=== PATIENT | female | born 1965 | race Caucasian/White ===

== ENCOUNTER → 2018-04-08 17:12 | Outpatient (CLI) | payer OTHER, SELFPAY ==
[2018-04-08 17:59] LABS: Add Manual Diff / Slide Review NO; Basophils Percent Auto 0.7 % (0-2); Eosinophils Percent Auto 3.9 % (2-4); Hematocrit 40.8 % (36-46); Hemoglobin 13.9 g/dL (12.0-16.0); Mean Corpuscular HGB Conc 34.1 % (30-36); Mean Corpuscular Hemoglobin 29.7 PG (26-34); Mean Corpuscular Volume 87.2 fL (80-100); Monocytes Percent Auto 7.6 % (3-14); Neutrophils Absolute Auto 3400 /uL (3000-5900); Neutrophils Percent Auto 45.8 % (50-75); Platelet Count 337 X10^3/uL (150-400); Red Blood Cell Count 4.68 X10^6/uL (4.0-5.2); Red Cell Distribution Width 12.8 % (11.6-14.8); White Blood Cell Count 7.3 X10^3/uL (4.5-11.0)
[2018-04-08 18:03] LABS: BUN Creatinine Ratio 13.3 (6-22); Blood Urea Nitrogen 12 mg/dL (7-17); Calcium 9.9 mg/dL (8.4-10.2); Carbon Dioxide 31 mmol/L (22-32); Chloride 102 mmol/L (98-107); Estimated Glomerular Filt Rate > 60.0 mL/min (>60); Glucose 110 mg/dL (70-100); HEMOLYSIS < 15 (0-50); Potassium 4.4 mmol/L (3.4-5.1); Sodium 143 mmol/L (137-145)
== END ==
PROVIDERS: PCP Family Medicine; Visit Provider Family Medicine
DX: I10 Essential (primary) hypertension (principal); Z01.818 Encounter for other preprocedural examination
CPT/HCPCS: 36415; 80048; 85025

== ENCOUNTER → 2018-04-20 09:04 | Outpatient (CLI) | payer OTHER, SELFPAY ==
[2018-04-20 10:18] LABS: Hemoglobin A1C% w Est Avg Glu 5.7 % (4.0-6.0)
== END ==
PROVIDERS: PCP Family Medicine; Visit Provider Family Medicine
DX: R73.9 Hyperglycemia, unspecified (principal)
CPT/HCPCS: 36415; 83036

== ENCOUNTER 2018-05-05 09:45 | Outpatient (RCR) | payer OTHER, SELFPAY ==
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
--- NOTE | 2018-04-15 11:06 | PT.OPPOC ---
Current Diagnoses Cervicalgia (04/15/18) Abnormal posture (04/15/18) Weakness (04/15/18) Provider Visit Care Team Role Provider Type Sally Solano MD Attending Provider Physician Primary Care Provider Specialty: [facility] Address: [address] [place] [address], [facility] Email: [email or web address] Plan Of Care PT-OP-T Assessment and Plan Start: 04/15/18 07:29 Freq: Status: Active Protocol: Document 04/15/18 09:42 [facility] (Rec: 04/15/18 11:05 [facility] [id number]) Physical Therapy Assessment Rehab Potential Rehabilitation Potential Excellent Evaluation Complexity Number of Personal Factors/Comorbidities 3 or More Number of Body Systems Impaired 4 or More Clinical Presentation at Evaluation Evolving Impairments Impairments Activity Tolerance Functional Activities Pain Posture ROM Soft Tissue Mobility Strength Goals Three Impairment strength Short Term Goal (STG) Indep with HEP STG Duration 05/15/18 Jail Goal (LTG) 5/5 EFT & UE strength to allow pt to show improved postural stability LTG Duration 06/15/18 Two Impairment DASH Jail Goal (LTG) to 5 to show improvement in functional mobility LTG Duration 06/15/18 One Impairment pain Short Term Goal (STG) no greater than 5/10 pain daily STG Duration 05/15/18 Shovel Logger Goal (LTG) at most 1/10 with all activity including work LTG Duration 06/15/18 Physical Therapy Plan Frequency and Duration Frequency of Treatment 2x/Week Duration of Treatment 2 months Plan of Care Start Date 04/15/18 Plan of Care End Date 06/15/18 Therapeutic Interventions Therapeutic Interventions Aquatic Therapy Home Exercise Program Joint Mobilizations Manual Therapy Patient/Caregiver Education Soft Tissue Mobilization Taping Therapeutic Activities Therapeutic Exercises Modalities Cold Pack/Ice Massage Electric Stimulation Hot Packs Infrared Therapy Traction- Mechanical Ultrasound Next Visit Focus/Plan Next Note Type Treatment Note Next Visit Plan pec stretch, postural roll up, STM to neck & thoracic, PA thoracic mobs, estim?? (ask about skin CA) Plan of Care Dates Plan of Care Start Date 04/15/18 Plan of Care End Date 06/15/18 Please Sign and Return: I have reviewed this Plan of Care and certify that the skilled therapy services above are required to meet the patient?s needs. Physician Signature Date Printed Name and Credentials Clinical Instructor Signature Printed Name and Credentials
--- NOTE | 2018-04-20 11:32 | PT.OTN ---
Current Diagnoses Cervicalgia (04/20/18) Physical Therapy Treatment Note PT-OP-A Visit Information Start: 04/15/18 07:29 Freq: Status: Active Protocol: Document 04/20/18 08:19 [facility] (Rec: 04/20/18 11:30 [facility] [id number]) Out-Patient Physical Therapy Visit Information Visit Information Visit Type Treatment Note Visit Start Time 08:20 Visit Stop Time 09:15 Total Visit Minutes 55 Visit Number 2 Number of HEALTHCARE INTERPRETER Visits 0 PT-OP-B Current Condition Start: 04/15/18 07:29 Freq: Status: Active Protocol: Document 04/15/18 09:42 [facility] (Rec: 04/15/18 10:38 [facility] [id number]) Current Condition History of Current Condition Onset Date several months- December Current Complaints neck pain & R>L shoulder History of Current Condition Pt reprots neck pain started gradually. Unsure what caused it. Reports she does have breast implants and she is unsure if the weight is pulling or if it has to do with work. 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 Reports R arm was bugging her, but that has gone away and shortly after more pain in neck. Pain was getting worse so started to seak treatment. She has been waking up at night. Pt is getting R foot sx for bunion on May 12. Prior Treatments and Tests 3 massages; chiropractor eval & encouraged massage first; no imaging Treatment Goals Patient/Caregiver Goals dec pain for work PT-OP-C Subjective Start: 04/15/18 07:29 Freq: Status: Active Protocol: Document 04/20/18 08:19 [facility] (Rec: 04/20/18 11:32 [facility] [id number]) OP-PT Subjective Patient Comments Patient Comments Pt reports she was a little sore after eval. Ice felt good . PT-OP-F Manual Assessment Start: 04/15/18 07:29 Freq: Status: Active Protocol: Document 04/15/18 09:42 [facility] (Rec: 04/15/18 10:38 [facility] [id number]) Manual Assessments Soft Tissue Assessment Soft Tissue Mobility Assessment R>L cervical paraspinal, LS, UT, scalenes, pec, parascapular mm tight Joint Mobility Assessment Joint Mobility Assessment Elevated shoulder girdle & 1st rib R PT-OP-J Posture/Palpation/Skin Start: 04/15/18 07:29 Freq: Status: Active Protocol: Document 04/15/18 09:42 [facility] (Rec: 04/15/18 10:38 [facility] [id number]) Posture Evaluation [facility] Postural Classification System [facility] Postural Classifications Anterior/Posterior Elbow Flexion Test 0 PT-OP-K Range of Motion Start: 04/15/18 07:29 Freq: Status: Active Protocol: Document 04/15/18 09:42 [facility] (Rec: 04/15/18 10:38 [facility] [id number]) Cervical Spine Range of Motion Cervical Spine Active Degrees Testing Position Sitting Flexion 68 Extension 34 Rotation Left 52 Rotation Right 35 Lateral Flexion Left 35 Lateral Flexion Right 45 ROM Limitations Soft Tissue Tightness Pain Comments pain with ext & flex if go fast, stiff w/flex; tight with L SB; tight with rot & popped w/R rot PT-OP-L Special Tests Start: 04/15/18 07:29 Freq: Status: Active Protocol: Document 04/15/18 09:42 [facility] (Rec: 04/15/18 10:38 [facility] [id number]) Special Tests Cervical Spine Special Tests Spurling's Test Test Results neg Vertebral Artery Test Results neg Alar Ligament Test Results neg Neural Special Tests- Upper Body Radial Nerve Tension Test Results neg L; R positive Upper Limb Tension Test Test Results R: 80 L: 140 Comments passive abd Median Nerve Tension Test Results positve B (R at side) Ulnar Nerve Tension Test Results neg PT-OP-M Strength Start: 04/15/18 07:29 Freq: Status: Active Protocol: Document 04/15/18 09:42 [facility] (Rec: 04/15/18 10:38 [facility] [id number]) Shoulder Strength Shoulder Manual Muscle Testing Right Flexion 4 Good Extension 4- Good- Abduction (C5) 4 Good External Rotation 4- Good- Internal Rotation 4- Good- Left Flexion 5 Normal Extension 4 Good Abduction (C5) 4+ Good+ External Rotation 4+ Good+ Internal Rotation 5 Normal PT-OP-Q Treatments Start: 04/15/18 07:29 Freq: Status: Active Protocol: Document 04/20/18 08:19 [facility] (Rec: 04/20/18 11:30 [facility] [id number]) Therapeutic Exercises Supine Exercises 1 Supine Exercise Name axial elongation on mat Sidelying Exercises 1 Sidelying Exercise Name thoracic rot Side bilateral Reps/Minutes 8 Sitting Exercises 1 Sitting Exercise Name UT & LS stretch Standing Exercises 2 Standing Exercise Name pec stretch 1 Standing Exercise Name wall roll up 90/90 ER Reps/Minutes 10 Manual Therapy Treatment Soft Tissue Mobilization 1 Body Location UT, LS & scalenes Mobilization Type Rolling Intensity/Depth Moderate Joint Mobilizations 1 Joint T1 & 3 Direction L FM w/cover position PT-OP-R Modalities Start: 04/15/18 07:29 Freq: Status: Active Protocol: Document 04/20/18 08:19 [facility] (Rec: 04/20/18 11:30 [facility] [id number]) Hot Pack/Cold Pack Treatment Cold Pack Location neck & R shoulder Patient Position Hooklying Treatment Duration (minutes) 10 PT-OP-T Assessment and Plan Start: 04/15/18 07:29 Freq: Status: Active Protocol: Document 04/20/18 08:19 [facility] (Rec: 04/20/18 11:30 [facility] [id number]) Physical Therapy Assessment Goals Three Impairment strength Short Term Goal (STG) Indep with HEP STG Duration 05/15/18 Retirement Goal (LTG) 5/5 EFT & UE strength to allow pt to show improved postural stability LTG Duration 06/15/18 Two Impairment DASH Exercise Manager Goal (LTG) to 5 to show improvement in functional mobility LTG Duration 06/15/18 One Impairment pain Short Term Goal (STG) no greater than 5/10 pain daily STG Duration 05/15/18 Exercise Manager Goal (LTG) at most 1/10 with all activity including work LTG Duration 06/15/18 Assessment Summary Assessment Pt required cueing for all exercises for form & duration of holds. Pt has R gliding of upper thoracic most notibly with T3. T1 and T2 improved with mobilizations which improved her ROM into rotation . T3 created pinching sensation when glided. Physical Therapy Plan Frequency and Duration Frequency of Treatment 2x/Week Duration of Treatment 2 months Plan of Care Start Date 04/15/18 Plan of Care End Date 06/15/18 Next Visit Focus/Plan Next Note Type Treatment Note Next Visit Plan desk set up, PA thoracic & possible Estim ( ask about skin CA)
--- NOTE | 2018-04-27 17:44 | PT.OTN ---
Current Diagnoses Cervicalgia (04/27/18) Physical Therapy Treatment Note PT-OP-A Visit Information Start: 04/15/18 07:29 Freq: Status: Active Protocol: Document 04/27/18 15:56 [facility] (Rec: 04/27/18 17:44 [facility] [id number]) Out-Patient Physical Therapy Visit Information Visit Information Visit Type Treatment Note Visit Start Time 16:00 Visit Stop Time 16:55 Total Visit Minutes 55 Visit Number 3 Number of ACCREDITATION MANAGER Visits 0 PT-OP-B Current Condition Start: 04/15/18 07:29 Freq: Status: Active Protocol: Document 04/15/18 09:42 [facility] (Rec: 04/15/18 10:38 [facility] [id number]) Current Condition History of Current Condition Onset Date several months- December Current Complaints neck pain & R>L shoulder History of Current Condition Pt reprots neck pain started gradually. Unsure what caused it. Reports she does have breast implants and she is unsure if the weight is pulling or if it has to do with work. 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 Reports R arm was bugging her, but that has gone away and shortly after more pain in neck. Pain was getting worse so started to seak treatment. She has been waking up at night. Pt is getting R foot sx for bunion on May 12. Prior Treatments and Tests 3 massages; chiropractor eval & encouraged massage first; no imaging Treatment Goals Patient/Caregiver Goals dec pain for work PT-OP-C Subjective Start: 04/15/18 07:29 Freq: Status: Active Protocol: Document 04/27/18 15:56 [facility] (Rec: 04/27/18 17:44 [facility] [id number]) OP-PT Subjective Patient Comments Patient Comments Maybe some improvement but still sore. PT-OP-F Manual Assessment Start: 04/15/18 07:29 Freq: Status: Active Protocol: Document 04/15/18 09:42 [facility] (Rec: 04/15/18 10:38 [facility] [id number]) Manual Assessments Soft Tissue Assessment Soft Tissue Mobility Assessment R>L cervical paraspinal, LS, UT, scalenes, pec, parascapular mm tight Joint Mobility Assessment Joint Mobility Assessment Elevated shoulder girdle & 1st rib R PT-OP-J Posture/Palpation/Skin Start: 04/15/18 07:29 Freq: Status: Active Protocol: Document 04/15/18 09:42 [facility] (Rec: 04/15/18 10:38 [facility] [id number]) Posture Evaluation [facility] Postural Classification System [place] Postural Classifications Anterior/Posterior Elbow Flexion Test 0 PT-OP-K Range of Motion Start: 04/15/18 07:29 Freq: Status: Active Protocol: Document 04/15/18 09:42 [facility] (Rec: 04/15/18 10:38 [facility] [id number]) Cervical Spine Range of Motion Cervical Spine Active Degrees Testing Position Sitting Flexion 68 Extension 34 Rotation Left 52 Rotation Right 35 Lateral Flexion Left 35 Lateral Flexion Right 45 ROM Limitations Soft Tissue Tightness Pain Comments pain with ext & flex if go fast, stiff w/flex; tight with L SB; tight with rot & popped w/R rot PT-OP-L Special Tests Start: 04/15/18 07:29 Freq: Status: Active Protocol: Document 04/15/18 09:42 [facility] (Rec: 04/15/18 10:38 [facility] [id number]) Special Tests Cervical Spine Special Tests Spurling's Test Test Results neg Vertebral Artery Test Results neg Alar Ligament Test Results neg Neural Special Tests- Upper Body Radial Nerve Tension Test Results neg L; R positive Upper Limb Tension Test Test Results R: 80 L: 140 Comments passive abd Median Nerve Tension Test Results positve B (R at side) Ulnar Nerve Tension Test Results neg PT-OP-M Strength Start: 04/15/18 07:29 Freq: Status: Active Protocol: Document 04/15/18 09:42 [facility] (Rec: 04/15/18 10:38 [facility] [id number]) Shoulder Strength Shoulder Manual Muscle Testing Right Flexion 4 Good Extension 4- Good- Abduction (C5) 4 Good External Rotation 4- Good- Internal Rotation 4- Good- Left Flexion 5 Normal Extension 4 Good Abduction (C5) 4+ Good+ External Rotation 4+ Good+ Internal Rotation 5 Normal PT-OP-Q Treatments Start: 04/15/18 07:29 Freq: Status: Active Protocol: Document 04/27/18 15:56 [facility] (Rec: 04/27/18 17:44 [facility] [id number]) Therapeutic Exercises Supine Exercises 1 Supine Exercise Name axial elongation on mat Sidelying Exercises 1 Sidelying Exercise Name thoracic rot Side bilateral Reps/Minutes 5 Sitting Exercises 1 Sitting Exercise Name UT & LS stretch Standing Exercises 2 Standing Exercise Name pec stretch 1 Standing Exercise Name wall roll up 90/90 ER Reps/Minutes 10 Manual Therapy Treatment Soft Tissue Mobilization 3 Body Location cervical parapsinals Mobilization Type Rolling Sustained Pressure Comments FM w/chin tucks 2 Body Location SOR Mobilization Type Sustained Pressure Intensity/Depth Moderate PT-OP-R Modalities Start: 04/15/18 07:29 Freq: Status: Active Protocol: Document 04/27/18 15:56 [facility] (Rec: 04/27/18 17:44 [facility] [id number]) Electric Stimulation Electric Stimulation Interferential Current (IFC) Body Location R cervical/shoulder Duration (Minutes) 10 Combined With Heat/Cold Cold Pack Comments CP R shoulder & cervical PT-OP-T Assessment and Plan Start: 04/15/18 07:29 Freq: Status: Active Protocol: Document 04/27/18 15:56 [facility] (Rec: 04/27/18 17:44 [facility] [id number]) Physical Therapy Assessment Goals Three Impairment strength Short Term Goal (STG) Indep with HEP STG Duration 05/15/18 Subway Train Operator Goal (LTG) 5/5 EFT & UE strength to allow pt to show improved postural stability LTG Duration 06/15/18 Two Impairment DASH Retirement Goal (LTG) to 5 to show improvement in functional mobility LTG Duration 06/15/18 One Impairment pain Short Term Goal (STG) no greater than 5/10 pain daily STG Duration 05/15/18 Subway Train Operator Goal (LTG) at most 1/10 with all activity including work LTG Duration 06/15/18 Assessment Summary Assessment Pt required cueing and new hand out for HEP exercises. She cont to be tight in upper thoracic & had significant cervical paraspinal & suboccipital region. Improved with STM. Physical Therapy Plan Frequency and Duration Frequency of Treatment 2x/Week Duration of Treatment 2 months Plan of Care Start Date 04/15/18 Plan of Care End Date 06/15/18 Next Visit Focus/Plan Next Note Type Treatment Note Next Visit Plan cont to review desk set up info edu & foam roll trial
--- NOTE | 2018-04-29 17:57 | PT.OTN ---
Current Diagnoses Cervicalgia (04/29/18) Physical Therapy Treatment Note PT-OP-A Visit Information Start: 04/15/18 07:29 Freq: Status: Active Protocol: Document 04/29/18 17:44 [facility] (Rec: 04/29/18 17:57 ML [id number]) Out-Patient Physical Therapy Visit Information Visit Information Visit Type Treatment Note Visit Start Time 15:15 Visit Stop Time 16:10 Total Visit Minutes 55 Visit Number 4 Number of COUNTERSINKER BALANCE SCREW HOLE Visits 0 PT-OP-B Current Condition Start: 04/15/18 07:29 Freq: Status: Active Protocol: Document 04/15/18 09:42 [facility] (Rec: 04/15/18 10:38 [facility] [id number]) Current Condition History of Current Condition Onset Date several months- December Current Complaints neck pain & R>L shoulder History of Current Condition Pt reprots neck pain started gradually. Unsure what caused it. Reports she does have breast implants and she is unsure if the weight is pulling or if it has to do with work. 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 Reports R arm was bugging her, but that has gone away and shortly after more pain in neck. Pain was getting worse so started to seak treatment. She has been waking up at night. Pt is getting R foot sx for bunion on May 12. Prior Treatments and Tests 3 massages; chiropractor eval & encouraged massage first; no imaging Treatment Goals Patient/Caregiver Goals dec pain for work PT-OP-C Subjective Start: 04/15/18 07:29 Freq: Status: Active Protocol: Document 04/29/18 17:44 [facility] (Rec: 04/29/18 17:57 ML [id number]) OP-PT Subjective Patient Comments Patient Comments Pt mentioned that she was feeling sore but that what we did last time was felt really good. She stated that she had not hardly been home and had not done her exercises since her visit Friday. PT-OP-F Manual Assessment Start: 04/15/18 07:29 Freq: Status: Active Protocol: Document 04/15/18 09:42 [facility] (Rec: 04/15/18 10:38 [facility] [id number]) Manual Assessments Soft Tissue Assessment Soft Tissue Mobility Assessment R>L cervical paraspinal, LS, UT, scalenes, pec, parascapular mm tight Joint Mobility Assessment Joint Mobility Assessment Elevated shoulder girdle & 1st rib R PT-OP-J Posture/Palpation/Skin Start: 04/15/18 07:29 Freq: Status: Active Protocol: Document 04/15/18 09:42 [facility] (Rec: 04/15/18 10:38 [facility] [id number]) Posture Evaluation [facility] Postural Classification System [facility] Postural Classifications Anterior/Posterior Elbow Flexion Test 0 PT-OP-K Range of Motion Start: 04/15/18 07:29 Freq: Status: Active Protocol: Document 04/15/18 09:42 [facility] (Rec: 04/15/18 10:38 [facility] [id number]) Cervical Spine Range of Motion Cervical Spine Active Degrees Testing Position Sitting Flexion 68 Extension 34 Rotation Left 52 Rotation Right 35 Lateral Flexion Left 35 Lateral Flexion Right 45 ROM Limitations Soft Tissue Tightness Pain Comments pain with ext & flex if go fast, stiff w/flex; tight with L SB; tight with rot & popped w/R rot PT-OP-L Special Tests Start: 04/15/18 07:29 Freq: Status: Active Protocol: Document 04/15/18 09:42 [facility] (Rec: 04/15/18 10:38 [facility] [id number]) Special Tests Cervical Spine Special Tests Spurling's Test Test Results neg Vertebral Artery Test Results neg Alar Ligament Test Results neg Neural Special Tests- Upper Body Radial Nerve Tension Test Results neg L; R positive Upper Limb Tension Test Test Results R: 80 L: 140 Comments passive abd Median Nerve Tension Test Results positve B (R at side) Ulnar Nerve Tension Test Results neg PT-OP-M Strength Start: 04/15/18 07:29 Freq: Status: Active Protocol: Document 04/15/18 09:42 [facility] (Rec: 04/15/18 10:38 [facility] [id number]) Shoulder Strength Shoulder Manual Muscle Testing Right Flexion 4 Good Extension 4- Good- Abduction (C5) 4 Good External Rotation 4- Good- Internal Rotation 4- Good- Left Flexion 5 Normal Extension 4 Good Abduction (C5) 4+ Good+ External Rotation 4+ Good+ Internal Rotation 5 Normal PT-OP-Q Treatments Start: 04/15/18 07:29 Freq: Status: Active Protocol: Document 04/29/18 17:44 ML (Rec: 04/29/18 17:57 ML [id number]) Therapeutic Exercises Supine Exercises 1 Supine Exercise Name axial elongation on mat Comments showed improvement Sidelying Exercises 1 Sidelying Exercise Name thoracic rot Side bilateral Reps/Minutes 10 bilat Comments instructed for head to move with arm as comfortable Sitting Exercises 1 Sitting Exercise Name UT & LS stretch Comments just head tilt, no pull with hand Standing Exercises 2 Standing Exercise Name pec stretch 1 Standing Exercise Name wall roll up 90/90 ER Reps/Minutes 10 Comments required cueing for getting legs away from wall to achieve correct posture Therapeutic Activity Therapeutic Activity 1 Name desk ergonomic positioning Comments reviewed pictures and educated pt about changes to make at desk space Manual Therapy Treatment Soft Tissue Mobilization 1 Body Location UT, LS & scalenes Mobilization Type Rolling Intensity/Depth Moderate Comments w/chin tucks PT-OP-R Modalities Start: 04/15/18 07:29 Freq: Status: Active Protocol: Document 04/29/18 17:44 ML (Rec: 04/29/18 17:57 ML [id number]) Electric Stimulation Electric Stimulation Interferential Current (IFC) Body Location R cervical/shoulder Duration (Minutes) 10 Combined With Heat/Cold Cold Pack Comments CP R shoulder & cervical PT-OP-T Assessment and Plan Start: 04/15/18 07:29 Freq: Status: Active Protocol: Document 04/29/18 17:44 ML (Rec: 04/29/18 17:57 ML [id number]) Physical Therapy Assessment Goals Three Impairment strength Short Term Goal (STG) Indep with HEP STG Duration 05/15/18 Manager Maritime Goal (LTG) 5/5 EFT & UE strength to allow pt to show improved postural stability LTG Duration 06/15/18 Two Impairment DASH Mcc Goal (LTG) to 5 to show improvement in functional mobility LTG Duration 06/15/18 One Impairment pain Short Term Goal (STG) no greater than 5/10 pain daily STG Duration 05/15/18 Manager Maritime Goal (LTG) at most 1/10 with all activity including work LTG Duration 06/15/18 Assessment Summary Assessment Spent time reviewing HEP and pictures of her at her work desk education on modifications to exercises and work space. Pt showed significant improvement on postural control of her head since last visit. Pt still presenting with significant muscular tightness and feeling very sore. Physical Therapy Plan Frequency and Duration Frequency of Treatment 2x/Week Duration of Treatment 2 months Plan of Care Start Date 04/15/18 Plan of Care End Date 06/15/18 Next Visit Focus/Plan Next Note Type Treatment Note Next Visit Plan check pictures of desk modifications, check if done HEP, foam roll trial, manual mobilization prn
--- NOTE | 2018-05-05 11:46 | PT.OTN ---
Current Diagnoses Cervicalgia (05/05/18) Physical Therapy Treatment Note PT-OP-A Visit Information Start: 04/15/18 07:29 Freq: Status: Active Protocol: Document 05/05/18 11:28 ML (Rec: 05/05/18 11:46 ML [id number]) Out-Patient Physical Therapy Visit Information Visit Information Visit Type Treatment Note Visit Start Time 09:45 Visit Stop Time 10:40 Total Visit Minutes 55 Visit Number 5 Number of CONTROL ROOM OPERATOR Visits 0 PT-OP-B Current Condition Start: 04/15/18 07:29 Freq: Status: Active Protocol: Document 04/15/18 09:42 [facility] (Rec: 04/15/18 10:38 [facility] [id number]) Current Condition History of Current Condition Onset Date several months- December Current Complaints neck pain & R>L shoulder History of Current Condition Pt reprots neck pain started gradually. Unsure what caused it. Reports she does have breast implants and she is unsure if the weight is pulling or if it has to do with work. 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 Reports R arm was bugging her, but that has gone away and shortly after more pain in neck. Pain was getting worse so started to seak treatment. She has been waking up at night. Pt is getting R foot sx for bunion on May 12. Prior Treatments and Tests 3 massages; chiropractor eval & encouraged massage first; no imaging Treatment Goals Patient/Caregiver Goals dec pain for work PT-OP-C Subjective Start: 04/15/18 07:29 Freq: Status: Active Protocol: Document 05/05/18 11:28 ML (Rec: 05/05/18 11:46 ML [id number]) OP-PT Subjective Patient Comments Patient Comments Pt mentioned that she feels the same but that she always leaves here feeling really good. She stated that she just made adjustments to her desk space this morning and that she was able to do her exercises at home this weekend . PT-OP-F Manual Assessment Start: 04/15/18 07:29 Freq: Status: Active Protocol: Document 04/15/18 09:42 [facility] (Rec: 04/15/18 10:38 [facility] [id number]) Manual Assessments Soft Tissue Assessment Soft Tissue Mobility Assessment R>L cervical paraspinal, LS, UT, scalenes, pec, parascapular mm tight Joint Mobility Assessment Joint Mobility Assessment Elevated shoulder girdle & 1st rib R PT-OP-J Posture/Palpation/Skin Start: 04/15/18 07:29 Freq: Status: Active Protocol: Document 04/15/18 09:42 [facility] (Rec: 04/15/18 10:38 [facility] [id number]) Posture Evaluation [facility] Postural Classification System [facility] Postural Classifications Anterior/Posterior Elbow Flexion Test 0 PT-OP-K Range of Motion Start: 04/15/18 07:29 Freq: Status: Active Protocol: Document 04/15/18 09:42 [facility] (Rec: 04/15/18 10:38 [facility] [id number]) Cervical Spine Range of Motion Cervical Spine Active Degrees Testing Position Sitting Flexion 68 Extension 34 Rotation Left 52 Rotation Right 35 Lateral Flexion Left 35 Lateral Flexion Right 45 ROM Limitations Soft Tissue Tightness Pain Comments pain with ext & flex if go fast, stiff w/flex; tight with L SB; tight with rot & popped w/R rot PT-OP-L Special Tests Start: 04/15/18 07:29 Freq: Status: Active Protocol: Document 04/15/18 09:42 [facility] (Rec: 04/15/18 10:38 [facility] [id number]) Special Tests Cervical Spine Special Tests Spurling's Test Test Results neg Vertebral Artery Test Results neg Alar Ligament Test Results neg Neural Special Tests- Upper Body Radial Nerve Tension Test Results neg L; R positive Upper Limb Tension Test Test Results R: 80 L: 140 Comments passive abd Median Nerve Tension Test Results positve B (R at side) Ulnar Nerve Tension Test Results neg PT-OP-M Strength Start: 04/15/18 07:29 Freq: Status: Active Protocol: Document 04/15/18 09:42 [facility] (Rec: 04/15/18 10:38 [facility] [id number]) Shoulder Strength Shoulder Manual Muscle Testing Right Flexion 4 Good Extension 4- Good- Abduction (C5) 4 Good External Rotation 4- Good- Internal Rotation 4- Good- Left Flexion 5 Normal Extension 4 Good Abduction (C5) 4+ Good+ External Rotation 4+ Good+ Internal Rotation 5 Normal PT-OP-Q Treatments Start: 04/15/18 07:29 Freq: Status: Active Protocol: Document 05/05/18 11:28 ML (Rec: 05/05/18 11:46 ML [email or web address]) Therapeutic Exercises Supine Exercises 2 Supine Exercise Name foam roller w/arm movements Comments horiz abd, flex and abd limited by R shoulder pain 1 Supine Exercise Name axial elongation on mat Comments showed independence with this exercise Sidelying Exercises 1 Sidelying Exercise Name thoracic rot Side bilateral Reps/Minutes 10 bilat Comments showed to be independent Sitting Exercises 1 Sitting Exercise Name UT & LS stretch Comments just head tilt, required instruction for posture, hold time, & set up Standing Exercises 2 Standing Exercise Name pec stretch Comments required instruction for hold time and positioning 1 Standing Exercise Name wall roll up 90/90 ER Reps/Minutes 8 Comments required cueing for getting legs away from wall to achieve correct posture Manual Therapy Treatment Soft Tissue Mobilization 3 Body Location cervical paraspinals Mobilization Type Rolling Sustained Pressure Comments FM w/chin tucks 1 Body Location UT & LS Mobilization Type Rolling Intensity/Depth Moderate Comments w/chin tucks and shoulder elevation/depression Joint Mobilizations 1 Joint T2 & 3 Direction L FM w/cover position PT-OP-R Modalities Start: 04/15/18 07:29 Freq: Status: Active Protocol: Document 05/05/18 11:28 ML (Rec: 05/05/18 11:46 ML [id number]) Electric Stimulation Electric Stimulation Interferential Current (IFC) Body Location R cervical/shoulder Duration (Minutes) 10 Combined With Heat/Cold Cold Pack Comments CP R shoulder & cervical PT-OP-T Assessment and Plan Start: 04/15/18 07:29 Freq: Status: Active Protocol: Document 05/05/18 11:28 ML (Rec: 05/05/18 11:46 ML [id number]) Physical Therapy Assessment Goals Three Impairment strength Short Term Goal (STG) Indep with HEP STG Duration 05/15/18 Long-Term Goal (LTG) 5/5 EFT & UE strength to allow pt to show improved postural stability LTG Duration 06/15/18 Two Impairment DASH Long-Term Goal (LTG) to 5 to show improvement in functional mobility LTG Duration 06/15/18 One Impairment pain Short Term Goal (STG) no greater than 5/10 pain daily STG Duration 05/15/18 Clinical Information Systems Director Goal (LTG) at most 1/10 with all activity including work LTG Duration 06/15/18 Assessment Summary Assessment Pt demonstrated HEP correctly with additional cueing. Pt also improved rotation with soft tissue mobilization and T2-T3 mobilization. Pt demonstrated a good stretch during the foam exercises and showed interest in getting one to use at home. Physical Therapy Plan Frequency and Duration Frequency of Treatment 2x/Week Duration of Treatment 2 months Plan of Care Start Date 04/15/18 Plan of Care End Date 06/15/18 Next Visit Focus/Plan Next Note Type Treatment Note Next Visit Plan check desk pictures, continue to work on T spine mobility, review foam and ask about info , check the few exercises that needed cueing for HEP, work manually more anterior and into chest
--- NOTE | 2018-06-03 09:10 | PT.OPDS ---
Current Diagnoses Cervicalgia (05/05/18) Provider Visit Care Team Role Provider Type Sally Solano MD Attending Provider Physician Primary Care Provider Specialty: [facility] Address: [address] [place] [address], [facility] Email: [email or web address] Visit Number Visit Number 5 Discharge Summary PT-OP-B Current Condition Start: 04/15/18 07:29 Freq: Status: Active Protocol: Document 04/15/18 09:42 [facility] (Rec: 04/15/18 10:38 [facility] [id number]) Current Condition History of Current Condition Onset Date several months- December Current Complaints neck pain & R>L shoulder History of Current Condition Pt reprots neck pain started gradually. Unsure what caused it. Reports she does have breast implants and she is unsure if the weight is pulling or if it has to do with work. 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 Reports R arm was bugging her, but that has gone away and shortly after more pain in neck. Pain was getting worse so started to seak treatment. She has been waking up at night. Pt is getting R foot sx for bunion on May 12. Prior Treatments and Tests 3 massages; chiropractor eval & encouraged massage first; no imaging Treatment Goals Patient/Caregiver Goals dec pain for work PT-OP-C Subjective Start: 04/15/18 07:29 Freq: Status: Active Protocol: Document 05/05/18 11:28 [facility] (Rec: 05/05/18 11:46 ML [id number]) OP-PT Subjective Patient Comments Patient Comments Pt mentioned that she feels the same but that she always leaves here feeling really good. She stated that she just made adjustments to her desk space this morning and that she was able to do her exercises at home this weekend . PT-OP-F Manual Assessment Start: 04/15/18 07:29 Freq: Status: Active Protocol: Document 04/15/18 09:42 [facility] (Rec: 04/15/18 10:38 [facility] [id number]) Manual Assessments Soft Tissue Assessment Soft Tissue Mobility Assessment R>L cervical paraspinal, LS, UT, scalenes, pec, parascapular mm tight Joint Mobility Assessment Joint Mobility Assessment Elevated shoulder girdle & 1st rib R PT-OP-J Posture/Palpation/Skin Start: 04/15/18 07:29 Freq: Status: Active Protocol: Document 04/15/18 09:42 [facility] (Rec: 04/15/18 10:38 [facility] [id number]) Posture Evaluation [facility] Postural Classification System Alin Postural Classifications Anterior/Posterior Elbow Flexion Test 0 PT-OP-K Range of Motion Start: 04/15/18 07:29 Freq: Status: Active Protocol: Document 04/15/18 09:42 [facility] (Rec: 04/15/18 10:38 [facility] [id number]) Cervical Spine Range of Motion Cervical Spine Active Degrees Testing Position Sitting Flexion 68 Extension 34 Rotation Left 52 Rotation Right 35 Lateral Flexion Left 35 Lateral Flexion Right 45 ROM Limitations Soft Tissue Tightness Pain Comments pain with ext & flex if go fast, stiff w/flex; tight with L SB; tight with rot & popped w/R rot PT-OP-L Special Tests Start: 04/15/18 07:29 Freq: Status: Active Protocol: Document 04/15/18 09:42 [facility] (Rec: 04/15/18 10:38 [facility] [id number]) Special Tests Cervical Spine Special Tests Spurling's Test Test Results neg Vertebral Artery Test Results neg Alar Ligament Test Results neg Neural Special Tests- Upper Body Radial Nerve Tension Test Results neg L; R positive Upper Limb Tension Test Test Results R: 80 L: 140 Comments passive abd Median Nerve Tension Test Results positve B (R at side) Ulnar Nerve Tension Test Results neg PT-OP-M Strength Start: 04/15/18 07:29 Freq: Status: Active Protocol: Document 04/15/18 09:42 [facility] (Rec: 04/15/18 10:38 [facility] [id number]) Shoulder Strength Shoulder Manual Muscle Testing Right Flexion 4 Good Extension 4- Good- Abduction (C5) 4 Good External Rotation 4- Good- Internal Rotation 4- Good- Left Flexion 5 Normal Extension 4 Good Abduction (C5) 4+ Good+ External Rotation 4+ Good+ Internal Rotation 5 Normal PT-OP-T Assessment and Plan Start: 04/15/18 07:29 Freq: Status: Active Protocol: Document 06/03/18 09:10 [facility] (Rec: 06/03/18 09:10 [facility] [id number]) Physical Therapy Plan Discharge Physical Therapy Discharge Reasons Patient Request Discharge Comments Pt cancelled all appointments and asked for d/c. Pt attended eval and 4 treatment session with focus on training in HEP and compliance with HEP & desk posture. Pt is d/c from PT at this time.
== END 2018-07-22 10:16 ==
LOC: PHYS 09:45
PROVIDERS: PCP Family Medicine; Visit Provider Family Medicine
DX: M54.2 Cervicalgia (principal)
CPT/HCPCS: 97010; 97014; 97110; 97140; 97162; 97530; G0283

== ENCOUNTER → 2018-05-06 17:11 | Outpatient (CLI) | payer OTHER, SELFPAY ==
--- NOTE | 2018-05-06 17:14 | DI.RAD.S_ITS ---
PROCEDURE: XR SHOULDER RT MIN 2V INDICATIONS: neck and right shoulder pain TECHNIQUE: 3 views of the shoulder were acquired. COMPARISON: None. FINDINGS: Bones: No fractures or dislocations. No suspicious bony lesions. Visualized ribs appear intact. Moderate acromioclavicular degenerative narrowing. Soft tissues: No suspicious soft tissue calcifications. IMPRESSION: Moderate acromioclavicular degenerative narrowing. Dictated by: Concepcion Castro M.D. on 05/07/2018 at 9:52 Approved by: Concepcion Castro M.D. on 05/07/2018 at 10:01
--- NOTE | 2018-05-06 17:14 | DI.RAD.S_ITS ---
PROCEDURE: XR CERVICAL SPINE 2V OR 3V INDICATIONS: neck and right shoulder pain TECHNIQUE: 3 view(s) of the cervical spine were acquired. COMPARISON: None. FINDINGS: Bones: No fractures or dislocations to the C7-T1 level. The lateral masses of C1 appear intact on the odontoid view. No suspicious bony lesions. There is trace anterolisthesis of C3 on C4. Mild to space narrowing is present at C3-4, C4-5 and C5-6. There is appearance of overall straightening and minimal reversal cervical curvature. Soft tissues: No prevertebral soft tissue swelling. IMPRESSION: Degenerative changes as above. Dictated by: Concepcion Castro M.D. on 05/07/2018 at 10:02 Approved by: Concepcion Castro M.D. on 05/07/2018 at 10:03
== END ==
PROVIDERS: PCP Family Medicine; Visit Provider Family Medicine
DX: M54.2 Cervicalgia (principal); M48.02 Spinal stenosis, cervical region; M25.511 Pain in right shoulder; M19.011 Primary osteoarthritis, right shoulder
CPT/HCPCS: 72040; 73030

== ENCOUNTER → 2018-06-08 14:23 | Outpatient (CLI) | payer OTHER, SELFPAY ==
--- NOTE | 2018-06-08 14:24 | DI.MG.S_ITS ---
BILATERAL DIGITAL SCREENING MAMMOGRAM 3D/2D WITH CAD WITH AUGMENTATION: 06/08/2018 CLINICAL: Patient presents for routine screening. S/P bilateral augmentation. Family history of breast cancer. Comparison is made to exams dated: 06/09/2014 mammogram - [facility] and 08/20/2007 mammogram - [facility]. The tissue of both breasts is heterogeneously dense. This may lower the sensitivity of mammography. Current study was also evaluated with a Computer Aided Detection (CAD) system. Bilateral breast implants are stable. There are benign calcifications in both breasts. No significant masses, calcifications, or other findings are seen in either breast. There has been no significant interval change. IMPRESSION: There is no mammographic evidence of malignancy. A 1 year screening mammogram is recommended. This exam was interpreted at Station ID: [id number]. NOTE: For mammograms, a report in lay terms will be sent to the patient. Approximately 15% of breast malignancies will not be visualized mammographically. In the management of a palpable breast mass, a negative mammogram must not discourage biopsy of a clinically suspicious lesion. Electronically Signed By: Jim maurer/marky:06/08/2018 17:29:51 letter sent: Normal Exam ACR BI-RADS Category 2: Benign Finding(s) 3342F
== END ==
PROVIDERS: PCP Family Medicine; Visit Provider Family Medicine
DX: Z12.31 Encounter for screening mammogram for malignant neoplasm of breast (principal); Z80.3 Family history of malignant neoplasm of breast; Z98.82 Breast implant status
CPT/HCPCS: 77063; 77067

== ENCOUNTER → 2019-06-07 07:17 | Outpatient (CLI) | payer OTHER, SELFPAY ==
[2019-06-07 08:27] LABS: Alanine Aminotransferase 25 IU/L (<35); Albumin 4.5 g/dL (3.5-5.0); Albumin Globulin Ratio 1.3 (1.0-2.8); Alkaline Phosphatase 55 U/L (38-126); Aspartate Aminotransferase 32 IU/L (14-36); Bilirubin Total 0.5 mg/dL (0.2-1.3); Blood Urea Nitrogen 11 mg/dL (7-17); Calcium 9.7 mg/dL (8.4-10.2); Carbon Dioxide 28 mmol/L (22-32); Chloride 105 mmol/L (98-107); Cholesterol 232 mg/dL (140-199); Estimated Glomerular Filt Rate 51.8 mL/min (>60); Globulin 3.4 g/dL (1.7-4.1); Glucose 106 mg/dL (70-100); HDL Cholesterol 57 mg/dL (40-60); HEMOLYSIS < 15 (0-50); LDL Cholesterol Calculated 153 mg/dL (<100); Potassium 4.2 mmol/L (3.4-5.1); Sodium 140 mmol/L (137-145); Total Protein 7.9 g/dL (6.3-8.2); Triglycerides 111 mg/dL (35-150)
[2019-06-07 08:55] LABS: Thyroid Stimulating Hormone 1.83 uIU/mL (0.47-4.68)
[2019-06-07 10:40] LABS: Hemoglobin A1C% w Est Avg Glu 5.6 % (4.0-6.0)
== END ==
PROVIDERS: PCP Family Medicine; Visit Provider Family Medicine
DX: I10 Essential (primary) hypertension (principal); R73.9 Hyperglycemia, unspecified; E03.9 Hypothyroidism, unspecified
CPT/HCPCS: 36415; 80053; 80061; 83036; 84443

== ENCOUNTER → 2019-07-07 12:08 | Outpatient (CLI) | payer OTHER, SELFPAY ==
[2019-07-07 13:08] LABS: Alanine Aminotransferase 19 IU/L (<35); Albumin 4.3 g/dL (3.5-5.0); Albumin Globulin Ratio 1.5 (1.0-2.8); Alkaline Phosphatase 61 U/L (38-126); Aspartate Aminotransferase 27 IU/L (14-36); Bilirubin Total 0.5 mg/dL (0.2-1.3); Blood Urea Nitrogen 15 mg/dL (7-17); Calcium 9.9 mg/dL (8.4-10.2); Carbon Dioxide 25 mmol/L (22-32); Chloride 104 mmol/L (98-107); Estimated Glomerular Filt Rate 57.8 mL/min (>60); Globulin 2.8 g/dL (1.7-4.1); Glucose 92 mg/dL (70-100); HEMOLYSIS < 15 (0-50); Potassium 4.3 mmol/L (3.4-5.1); Sodium 139 mmol/L (137-145); Total Protein 7.1 g/dL (6.3-8.2)
== END ==
PROVIDERS: PCP Family Medicine; Visit Provider Family Medicine
DX: R89.9 Unspecified abnormal finding in specimens from other organs, systems and tissues (principal)
CPT/HCPCS: 36415; 80053

== ENCOUNTER → 2020-07-31 16:53 | Outpatient (CLI) | payer OTHER, SELFPAY ==
--- NOTE | 2020-07-31 17:00 | DI.RAD.S_ITS ---
PROCEDURE: XR HUMERUS RT 2V INDICATIONS: pain in rt humerus TECHNIQUE: 2 views of the humerus were acquired. COMPARISON: [facility], CR, XR SHOULDER RT MIN 2V, 05/06/2018, 16:51. [facility], CR, XR SCAPULA RT, 07/31/2020, 17:03. [facility], CR, XR CLAVICLE RT, 07/31/2020, 17:03. FINDINGS: Bones: No fractures or dislocations. No suspicious bony lesions. Soft tissues: No suspicious soft tissue calcifications. IMPRESSION: Right humerus plain films within normal limits. Dictated by: Ruslan Masters M.D. on 07/31/2020 at 16:18 Approved by: Ruslan Masters M.D. on 07/31/2020 at 16:19
--- NOTE | 2020-07-31 17:00 | DI.RAD.S_ITS ---
PROCEDURE: XR SCAPULA RT INDICATIONS: pain in rt scapula TECHNIQUE: 2 views of the scapula were acquired. COMPARISON: [facility], CR, XR SHOULDER RT MIN 2V, 05/06/2018, 16:51. [facility], CR, XR CLAVICLE RT, 07/31/2020, 17:03. [facility], CR, XR HUMERUS RT 2V, 07/31/2020, 17:03. FINDINGS: Bones: No fractures or dislocations. No suspicious bony lesions. Visualized ribs appear intact. Soft tissues: Overlying soft tissues appear normal. The visualized lung demonstrates an unremarkable appearance. IMPRESSION: Unremarkable plain films of the scapula. Dictated by: Ruslan Masters M.D. on 07/31/2020 at 16:19 Approved by: Ruslan Masters M.D. on 07/31/2020 at 16:19
--- NOTE | 2020-07-31 17:00 | DI.RAD.S_ITS ---
PROCEDURE: XR CLAVICLE RT INDICATIONS: pain in rt clavicle TECHNIQUE: 2 views of the clavicle were acquired. COMPARISON: [facility], CR, XR SCAPULA RT, 07/31/2020, 17:03. [facility], CR, XR SHOULDER RT MIN 2V, 05/06/2018, 16:51. FINDINGS: Bones: No fractures or dislocations. No suspicious bony lesions. Soft tissues: No suspicious soft tissue calcifications. The visualized lung demonstrates an unremarkable appearance. IMPRESSION: Normal clavicle plain films. Dictated by: Ruslan Masters M.D. on 07/31/2020 at 16:18 Approved by: Ruslan Masters M.D. on 07/31/2020 at 16:18
== END ==
PROVIDERS: PCP Family Medicine; Referring Provider Physician Assistant; Visit Provider Physician Assistant
DX: M89.8X2 Other specified disorders of bone, upper arm (principal); M89.8X1 Other specified disorders of bone, shoulder
CPT/HCPCS: 73000; 73010; 73060

== ENCOUNTER → 2020-08-04 07:04 | Outpatient (CLI) | payer OTHER, SELFPAY ==
[2020-08-04 08:18] LABS: Alanine Aminotransferase 34 IU/L (<35); Albumin 4.2 g/dL (3.5-5.0); Albumin Globulin Ratio 1.4 (1.0-2.8); Alkaline Phosphatase 55 U/L (38-126); Aspartate Aminotransferase 35 IU/L (14-36); BUN Creatinine Ratio 22.6 (6-22); Bilirubin Total 0.3 mg/dL (0.2-1.3); Blood Urea Nitrogen 21 mg/dL (7-17); Calcium 9.3 mg/dL (8.4-10.2); Carbon Dioxide 29 mmol/L (22-32); Chloride 106 mmol/L (98-107); Cholesterol 189 mg/dL (140-199); Estimated Glomerular Filt Rate > 60.0 mL/min (>60); Globulin 3.1 g/dL (1.7-4.1); Glucose 105 mg/dL (70-100); HDL Cholesterol 53 mg/dL (40-60); HEMOLYSIS < 15 (0-50); LDL Cholesterol Calculated 122 mg/dL (<100); Potassium 4.8 mmol/L (3.4-5.1); Sodium 139 mmol/L (137-145); Total Protein 7.3 g/dL (6.3-8.2); Triglycerides 71 mg/dL (35-150)
[2020-08-04 08:27] LABS: Creatinine Urine Random 207.7 mg/dL
[2020-08-04 08:32] LABS: Microalbumi Creatinin Ratio Ur 69.3 ug/mg CR (<30); Microalbumin Urine Random 14.4 mg/dL (0-1.6)
[2020-08-04 09:52] LABS: Thyroid Stimulating Hormone 2.03 uIU/mL (0.47-4.68)
== END ==
PROVIDERS: PCP Family Medicine; Referring Provider Family Medicine; Visit Provider Family Medicine
DX: I10 Essential (primary) hypertension (principal)
CPT/HCPCS: 36415; 80053; 80061; 82043; 82570; 84443

== ENCOUNTER → 2020-09-14 08:05 | Outpatient (CLI) | payer OTHER, SELFPAY ==
--- NOTE | 2020-09-14 | DI.MG.S_ITS ---
BILATERAL DIGITAL SCREENING MAMMOGRAM 3D/2D WITH CAD: 09/14/2020 CLINICAL: Routine screening. Family history of breast cancer. Comparison is made to exams dated: 06/08/2018 mammogram, 06/09/2014 mammogram - [facility], and 08/20/2007 mammogram - [facility]. The tissue of both breasts is heterogeneously dense. This may lower the sensitivity of mammography. Current study was also evaluated with a Computer Aided Detection (CAD) system. There are benign calcifications in both breasts. No significant masses, calcifications, or other findings are seen in either breast. IMPRESSION: BENIGN There is no mammographic evidence of malignancy. A 1 year screening mammogram is recommended. This exam was interpreted at Station ID: [id number]. NOTE: For mammograms, a report in lay terms will be sent to the patient. Approximately 15% of breast malignancies will not be visualized mammographically. In the management of a palpable breast mass, a negative mammogram must not discourage biopsy of a clinically suspicious lesion. Electronically Signed By: Salazar barger/marky:09/14/2020 08:56:48 letter sent: Normal Exam ACR BI-RADS Category 2: Benign Finding(s) 3342F
== END ==
PROVIDERS: PCP Family Medicine; Referring Provider Family Medicine; Visit Provider Family Medicine
DX: Z12.31 Encounter for screening mammogram for malignant neoplasm of breast (principal); Z80.3 Family history of malignant neoplasm of breast
CPT/HCPCS: 77063; 77067

== ENCOUNTER → 2020-12-04 09:47 | Outpatient (CLI) | payer OTHER, SELFPAY ==
--- NOTE | 2020-12-04 09:48 | DI.RAD.S_ITS ---
PROCEDURE: XR CERVICAL SPINE 2V OR 3V INDICATIONS: lower neck/upper back pain TECHNIQUE: 3 view(s) of the cervical spine were acquired. COMPARISON: [facility], CR, XR CERVICAL SPINE 2V OR 3V, 05/06/2018, 16:51. [facility], CR, XR CLAVICLE RT, 07/31/2020, 17:03. FINDINGS: Bones: No acute fracture identified. Reversal of the normal cervical lordosis. Trace anterolisthesis of C2 on C3, C3 on C4 and C4 on C5. Multilevel degenerative endplate sclerosis and spurring. Diffuse facet arthropathy. Diffuse mild narrowing of the C2-C3, C3-C4 and C4-C5 disc spaces. Soft tissues: No prevertebral soft tissue swelling. IMPRESSION: Interval increase in reversal of the normal cervical lordosis and trace anterolisthesis of C3 on C4 and C4 on C5 which is probably unchanged since 05/06/18. Mild levocurvature. Dictated by: Orlando Caldwell M.D. on 12/04/2020 at 10:44 Approved by: Orlando Caldwell M.D. on 12/04/2020 at 10:58
--- NOTE | 2020-12-04 09:48 | DI.RAD.S_ITS ---
PROCEDURE: XR THORACIC SPINE 3V INDICATIONS: lower neck/upper back pain TECHNIQUE: 3 views of the thoracic spine were acquired. COMPARISON: None. FINDINGS: Bones: No fractures or dislocations. No suspicious bony lesions. Multilevel degenerative endplate sclerosis and spurring. Diffuse facet arthropathy. Cervical spondylosis incidentally noted. Soft tissues: No paravertebral stripe thickening. IMPRESSION: No fracture. Mild spondylitic changes of the thoracic spine. Dictated by: Orlando Caldwell M.D. on 12/04/2020 at 10:59 Approved by: Orlando Caldwell M.D. on 12/04/2020 at 11:00
== END ==
PROVIDERS: PCP Family Medicine; Referring Provider Family Medicine; Visit Provider Family Medicine
DX: M54.2 Cervicalgia (principal); M47.812 Spondylosis without myelopathy or radiculopathy, cervical region; M54.6 Pain in thoracic spine; M47.814 Spondylosis without myelopathy or radiculopathy, thoracic region
CPT/HCPCS: 72040; 72072

== ENCOUNTER → 2021-04-16 08:00 | Outpatient (CLI) | payer OTHER, SELFPAY ==
--- NOTE | 2021-04-16 08:00 | DI.ECHO.S_ITS ---
[facility]---------+ [facility] +---------+ : : [address] : : : : [id number] : : : : Phone: [phone]+ Echocardiogram Report + + :Name: JACQUELINE GLORIA Study Date: 04/16/2021 Height: 63 in : :[facility] ReadingLocation: Weight: 160 lb : : Gender: Female BSA: 1.8 m2 : :: 1965 Age: 55 yrs BP: 146/99 mmHg: :Reason For Study: F/U CARDIOMYOPATHY : :Ordering Physician: HOWIE, : :DOLLY Performed By: Emelina Gomez : :Referring: DOLLY DENISE : + + Interpretation Summary Normal left ventricle size with ejection fraction 50-55%. Septal motion is consistent with conduction abnormality. Normal right ventricle and both atria. No valvular abnormality. Comparison is made with the echocardiogram of 07/01/2013, LV function has improved. Procedure: A two-dimensional transthoracic echocardiogram with color flow and Doppler was performed. The study quality was technically adequate. Comparison is made with the echocardiogram of 07/01/2013.. The patient had a bundle branch block rhythm during the exam. The heart rate ranged between 65- 85 bpm during the study. Left Ventricle: The left ventricle is normal in size and wall thickness. The ejection fraction is estimated to be 50-55%. Septal motion is consistent with conduction abnormality. There are no other obvious focal wall motion abnormalities. Diastolic parameters suggest probable normal left ventricular diastolic function and normal filling pressures. Right Ventricle: The right ventricle is normal in size and function. Atria: Both atria are normal in size. There is no Doppler evidence for an interatrial shunt. Mitral Valve: The mitral valve is normal in structure and function. There is trace mitral regurgitation. Aortic Valve: The aortic valve is trileaflet. The aortic valve opens well. There is no aortic valve stenosis. No aortic regurgitation is present. Tricuspid Valve: The tricuspid valve is normal in structure and function. There is trace tricuspid regurgitation. Pulmonary artery pressures cannot be estimated because of the lack of a measurable TR jet velocity but the IVC suggests a CVP of around 3 mmHg. Pulmonic Valve: The pulmonic valve leaflets are thin and pliable; valve motion is normal. There is trace pulmonic regurgitation. Great Vessels: The aortic root is normal size. The ascending aorta is normal in size. The IVC is of normal diameter and collapses greater than 50% with a sniff. This suggests a low right atrial pressure of 3 mm Hg. Pericardium/ Pleura There is no pericardial effusion. There is no pleural effusion. MMode/2D Measurements & Calculations LVIDd: 4.0 cm LVOT diam: 1.9 cm LVIDs: 2.8 cm Ao root diam: 2.7 cm FS: 30.2 % asc Aorta Diam: 3.4 cm IVSd: 0.70 cm Ao Arch Diam (Prox Trans): 2.6 cm LVPWd: 0.66 cm LV patel. diameter/BSA (cm/m^2): 2.3 LV sys. diameter/BSA (cm/m^2): 1.6 LA A2 area: 13.9 cm2 RA long axis: 4.3 cm LA A4 area: 14.8 cm2 RA area: 12.1 cm2 LA length (vol): 5.1 cm RA vol: 28.9 ml LA vol: 34.4 ml RA : 16.4 ml/m2 LA vol index: 19.6 ml/m2 IVC diam: 1.2 cm RVD1 (basal): 3.9 cm RVD2 (mid): 3.5 cm TAPSE: 1.9 cm Doppler Measurements & Calculations Ao V2 max: 121.3 cm/sec LVOT Max Red: 94.5 cm/sec Ao V2 mean: 87.3 cm/sec LV V1 max P.6 mmHg Ao max P.9 mmHg LV V1 VTI: 19.9 cm Ao mean P.3 mmHg SEVERIANO(I,D): 1.9 cm2 Ao V2 VTI: 28.2 cm SEVERIANO(V,D): 2.1 cm2 sev ratio: 0.71 SEVERIANO indexed to BSA (cm^2/m^2): 1.1 MV E max red: 56.9 cm/sec PA V2 max: 82.7 cm/sec MV A max red: 52.5 cm/sec PA V2 mean: 57.6 cm/sec MV E/A: 1.1 PA mean P.5 mmHg Med Peak E' Red: 8.2 cm/sec PA pr(Accel): 32.8 mmHg E/E' med: 6.9 Lat Peak E' Red: 8.2 cm/sec E/E' lat: 6.9 E/e' average: 6.9 MV dec time: 0.23 sec SV(LVOT): 54.4 ml Electronically signed by: Yelitza Green on Reading Physician:04/16/2021 09:51 AM
== END ==
PROVIDERS: PCP Family Medicine; Referring Provider Family Medicine; Visit Provider Family Medicine
DX: I42.9 Cardiomyopathy, unspecified (principal)
CPT/HCPCS: 93306

== ENCOUNTER → 2021-04-23 17:02 | Outpatient (CLI) | payer OTHER, SELFPAY ==
[2021-04-23 18:38] LABS: Rheumatoid Factor < 8.6 IU/mL (<12.0)
== END ==
PROVIDERS: PCP Family Medicine; Referring Provider Family Medicine; Visit Provider Family Medicine
DX: M19.90 Unspecified osteoarthritis, unspecified site (principal)
CPT/HCPCS: 36415; 86430

== ENCOUNTER → 2021-07-06 14:58 | Outpatient (CLI) | payer OTHER, SELFPAY ==
--- NOTE | 2021-07-06 15:04 | DI.RAD.S_ITS ---
PROCEDURE: XR FOOT LT MIN 3V INDICATIONS: BI FOOT PAIN TECHNIQUE: 3 views of the foot were acquired. COMPARISON: None. FINDINGS: Bones: No fractures or dislocations. No suspicious bony lesions. Severe hallux valgus metatarsus prima varus alignment and medial bunion. Moderate 1st MTP and mild diffuse interphalangeal joint space narrowing with periarticular osteophyte formation. Soft tissues: No tibiotalar joint effusion. Achilles tendon appears normal. IMPRESSION: 1. Severe hallux valgus alignment and medial bunion. 2. 1st MTP and diffuse interphalangeal joint degeneration. Dictated by: Arvind Amaya [facility] Interpreted: Pillo Alford MD on 07/06/2021 at 15:38 Transcribed by: JOYCE on 07/06/2021 at 15:39 Approved by: Pillo Alford M.D. on 07/09/2021 at 9:15
--- NOTE | 2021-07-06 15:04 | DI.RAD.S_ITS ---
PROCEDURE: XR FOOT RT MIN 3V INDICATIONS: BI FOOT PAIN TECHNIQUE: 3 views of the foot were acquired. COMPARISON: [facility], CR, XR FOOT LT MIN 3V, 07/06/2021, 15:03. FINDINGS: Bones: No fractures or dislocations. No suspicious bony lesions. Moderate hallux valgus metatarsus prima varus alignment and medial bunion. Moderate 1st MTP and mild diffuse interphalangeal joint space narrowing with periarticular osteophyte formation. Soft tissues: No tibiotalar joint effusion. Achilles tendon appears normal. IMPRESSION: 1. Moderate hallux valgus alignment and medial bunion. 2. 1st MTP and diffuse interphalangeal joint degeneration. Dictated by: Arvind Amaya [facility] Interpreted: Pillo Alford MD on 07/06/2021 at 15:39 Transcribed by: JOYCE on 07/06/2021 at 15:40 Approved by: Pillo Alford M.D. on 07/09/2021 at 9:15
== END ==
PROVIDERS: PCP Family Medicine; Referring Provider Podiatrist; Visit Provider Podiatrist
DX: M79.671 Pain in right foot (principal); M79.672 Pain in left foot; M20.12 Hallux valgus (acquired), left foot; M20.11 Hallux valgus (acquired), right foot; M21.612 Bunion of left foot; M21.611 Bunion of right foot; M19.072 Primary osteoarthritis, left ankle and foot; M19.071 Primary osteoarthritis, right ankle and foot
CPT/HCPCS: 73630

== ENCOUNTER → 2021-08-01 14:39 | Outpatient (CLI) | payer OTHER, SELFPAY ==
[2021-08-01 15:59] LABS: Alanine Aminotransferase 23 IU/L (<35); Albumin 4.4 g/dL (3.5-5.0); Albumin Globulin Ratio 1.4 (1.0-2.8); Alkaline Phosphatase 52 U/L (38-126); Aspartate Aminotransferase 31 IU/L (14-36); BUN Creatinine Ratio 15.8 (6-22); Bilirubin Total 0.4 mg/dL (0.2-1.3); Blood Urea Nitrogen 16 mg/dL (7-17); Calcium 10.3 mg/dL (8.4-10.2); Carbon Dioxide 29 mmol/L (22-32); Chloride 105 mmol/L (98-107); Estimated Glomerular Filt Rate 56.7 mL/min (>60); Globulin 3.1 g/dL (1.7-4.1); Glucose 97 mg/dL (70-100); HEMOLYSIS < 15 (0-50); Potassium 4.6 mmol/L (3.4-5.1); Sodium 139 mmol/L (137-145); Total Protein 7.5 g/dL (6.3-8.2)
[2021-08-01 16:30] LABS: Creatinine Urine Random 79.5 mg/dL
[2021-08-01 16:35] LABS: Microalbumi Creatinin Ratio Ur 8.8 ug/mg CR (<30); Microalbumin Urine Random 0.7 mg/dL (0-1.6)
== END ==
PROVIDERS: PCP Family Medicine; Referring Provider Family Medicine; Visit Provider Family Medicine
DX: I10 Essential (primary) hypertension (principal); E03.9 Hypothyroidism, unspecified
CPT/HCPCS: 36415; 80053; 82043; 82570; 84443

== ENCOUNTER → 2021-12-21 12:52 | Outpatient (CLI) | payer OTHER, SELFPAY | PROVIDERS: PCP Family Medicine; Referring Provider Family Medicine; Visit Provider Family Medicine | DX: Z78.0 Asymptomatic menopausal state (principal) | CPT/HCPCS: 77080 ==

== ENCOUNTER → 2023-04-11 17:04 | Outpatient (CLI) | payer OTHER, SELFPAY ==
[2023-04-11 17:59] LABS: TSH w/ Reflex to FT4 0.36 uIU/mL (0.47-4.68)
[2023-04-11 18:24] LABS: Free T4, Direct Thyroxine 1.12 ng/dL (0.78-2.19)
== END ==
PROVIDERS: PCP Family Medicine; Referring Provider Family Medicine; Visit Provider Family Medicine
DX: E03.9 Hypothyroidism, unspecified (principal)
CPT/HCPCS: 36415; 84439; 84443

== ENCOUNTER → 2024-10-04 07:04 | Outpatient (CLI) | payer OTHER, SELFPAY ==
[2024-10-04 08:03] LABS: Alanine Aminotransferase 34 IU/L (<35); Albumin 4.3 g/dL (3.5-5.0); Albumin Globulin Ratio 1.5 (1.0-2.8); Alkaline Phosphatase 60 U/L (38-126); Aspartate Aminotransferase 36 IU/L (14-36); BUN Creatinine Ratio 15.5 (6-22); Bilirubin Total 0.6 mg/dL (0.2-1.3); Blood Urea Nitrogen 16 mg/dL (7-17); Calcium 9.4 mg/dL (8.4-10.2); Carbon Dioxide 23 mmol/L (22-32); Chloride 106 mmol/L (98-107); Cholesterol 238 mg/dL (140-199); Estimated Glomerular Filt Rate > 60 mL/min (>60); Globulin 2.9 g/dL (1.7-4.1); Glucose 111 mg/dL (80-110); HDL Cholesterol 83 mg/dL (40-60); HEMOLYSIS < 15 (0-50); LDL Cholesterol Calculated 132 mg/dL (<100); Potassium 4.2 mmol/L (3.4-5.1); Sodium 137 mmol/L (137-145); Total Protein 7.2 g/dL (6.3-8.2); Triglycerides 115 mg/dL (35-150)
[2024-10-04 08:06] LABS: Rheumatoid Factor < 8.6 IU/mL (<12.0)
[2024-10-04 08:34] LABS: Thyroid Stimulating Hormone 2.84 uIU/mL (0.47-4.68)
== END ==
PROVIDERS: PCP Family Medicine; Referring Provider Family Medicine; Visit Provider Family Medicine
DX: M19.90 Unspecified osteoarthritis, unspecified site (principal); M79.671 Pain in right foot; M79.672 Pain in left foot; E03.9 Hypothyroidism, unspecified; I10 Essential (primary) hypertension
CPT/HCPCS: 36415; 80053; 80061; 84443; 86200; 86430

== ENCOUNTER 2024-10-25 10:23 | Day surgery (SDC) | payer OTHER, SELFPAY ==
--- NOTE | 2024-10-25 | PATH_ITS ---
[facility] Accession Number: [id number] No. of containers..01 Tissue . 01 Material submitted: . colon - RIGHT COLON POLYP . 01 Diagnosis: RIGHT COLON POLYP: Tubular adenoma. STO 10/27/2024 1109 Local . 01 Electronically signed: . Dioni Walton MD, Pathologist NPI- [id number] . 01 Gross description: . RIGHT COLON POLYP: Received in formalin is 1 fragment(s) of fine, soft tissue measuring 0.4 x 0.3 x 0.2 cm submitted entirely in 1 cassette(s) /NATALIYA 10/27/2024 1109 Local . 01 Pathologist provided ICD-10: D12.2 . 01 CPT . 252041 Specimen Comment: A courtesy copy of this report has been sent to [phone] Performed at: [address] [facility] [id number] MD Dioni Walton MD Phone: [phone]
--- NOTE | 2024-10-25 06:00 | EKG_ITS ---
[address] [address] Test Date: 2024-10-25 Pat Name: Iris Ardon Department: Room: Gender: Female Digital Business Analyst: Venkat CLINE : 1965 Requested By: Order Number: [id number] Reading MD: Chato Braun Measurements Intervals [place] Rate: 89 P: 62 DC: 132 QRS: -30 QRSD: 116 T: 113 QT: 398 QTc: 484 Interpretive Statements Normal sinus rhythm Left axis deviation Incomplete left bundle branch block Minimal voltage criteria for LVH, may be normal variant ( Macario product ) ST & T wave abnormality, consider lateral ischemia Electronically Signed On 10-25-2024 15:50:02 PDT by Chato Braun
[2024-10-25 11:12] VITALS: BP 124/74; PULSE 95; RESP 17; TEMP 36.5; O2SAT 98
[2024-10-25 12:19] VITALS: BP 117/74; PULSE 79; RESP 95; TEMP 36.1; O2SAT 14
--- NOTE | 2024-10-25 12:20 | PM.OP.COLON ---
Operative Date/Time/Diagnoses Date of procedure: 10/25/24 Post-op diagnosis: same (See indication and findings) Procedure & Clinicians Study performed: Colonoscopy Same procedure as scheduled: Yes Indications: 10 year follow-up colonoscopy Procedure Notes Procedure in detail: After informed consent was obtained the patient was placed in left lateral decubitus position. The video colonoscope was introduced into the rectum slowly advanced cecum. Preparation was good. On slow withdrawal mucosa was carefully examined. The scope was removed. The patient tolerated procedure well. Blood loss none Complications none Sedation mac Findings 1. 4 mm sessile polyp in the right colon Jumbo biopsy removed completely 2. Otherwise negative colonoscopy to cecum Will be in touch with the patient regarding appropriate follow-up for pathology.
[2024-10-25 12:24] VITALS: BP 110/66; PULSE 80; RESP 12; O2SAT 97
[2024-10-25 12:29] VITALS: BP 113/70; PULSE 74; RESP 12; TEMP 36.6; O2SAT 99
[2024-10-25 12:40] VITALS: BP 119/68; PULSE 70; RESP 12; TEMP 36.6; O2SAT 99
--- NOTE | 2025-01-19 09:45 | PM.OP.COLON ---
Operative Date/Time/Diagnoses Date of procedure: 10/26/24 Pre-op diagnosis: See indication and findings Post-op diagnosis: same Procedure & Clinicians Study performed: Colonoscopy Indications: Ten year follow-up screening colonoscopy Procedure Notes Procedure in detail: After informed consent was obtained the patient was placed in left lateral decubitus position. The video colonoscope was introduced the rectum slowly advanced cecum. Preparation was good. On slow withdrawal mucosa was carefully examined. The scope was removed. The patient t
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
== END 2024-10-25 12:50 | disposition home or self-care (01) ==
PROVIDERS: PCP Family Medicine; Referring Provider Internal Medicine Gastroenterology; Visit Provider Internal Medicine Gastroenterology
PROC: 0DJD8ZZ Inspection of Lower Intestinal Tract, Via Natural or Artificial Opening Endoscopic (ICD-10-PCS; CPT 45378; principal; 2024-10-25 11:30)
DX: Z12.11 Encounter for screening for malignant neoplasm of colon (principal); D12.2 Benign neoplasm of ascending colon
CPT/HCPCS: 45380; 93005; J2704

== ENCOUNTER → 2024-10-28 08:30 | Outpatient (CLI) | payer OTHER, SELFPAY ==
--- NOTE | 2024-10-28 08:32 | DI.MG.S_ITS ---
MM diagnostic mammo BI, US breast RT limited: 10/28/2024 BI-RADS: 2 CLINICAL: 59-year old female for bilateral diagnostic mammogram and right diagnostic breast ultrasound. Tyrer-Cuzick lifetime risk of 13.3%. Current reported family history of breast cancer: maternal grandmother and mother. The patient reports pain (less than 1 month) in the right breast. PRIOR EXAMS 07/15/2022, 09/14/2020, 06/08/2018. MAMMOGRAPHY TECHNIQUE: 2D and 3D (tomosynthesis) digital mammographic views obtained, with additional images as needed for full coverage. Current study was also evaluated with a Computer Aided Detection (CAD) system. ULTRASOUND TECHNIQUE Real-time flores scale and color doppler imaging of the area of clinical interest was performed with image documentation. TARGETED Right Breast Ultrasound: Real-time ultrasound exam was performed focused to area of clinical and/or imaging concern. DENSITY C. The breasts are heterogeneously dense, which may obscure small masses. MAMMOGRAPHY FINDINGS Right (finding-1): Lower Inner Quadrant, Middle depth: There is no suspicious mammographic finding to account for concern by the patient of pain/tenderness. No suspicious mass, asymmetry, microcalcification, or other abnormality seen. Right: Benign-appearing calcification noted on the right. Left: Benign-appearing mass and calcification noted on the left. There are no suspicious masses, calcifications, or other findings in the breast. No significant change from comparison. ULTRASOUND FINDINGS Right (finding-1): Lower Inner Quadrant: There is no suspicious sonographic finding to account for concern by the patient of pain/tenderness. The right breast at 4:00, 5 cm from the nipple, and at 3:00, 3 cm from the nipple was scanned. There are incidental scattered cysts and clustered microcysts, consistent with benign fibrocystic changes. IMPRESSION: Right * No evidence of malignancy. Left * No evidence of malignancy with benign findings. RECOMMENDATIONS Bilateral * Annual screening mammography. COMMENTS: Findings and recommendations were conveyed to the patient during today's evaluation. OVERALL ASSESSMENT CATEGORY BI-RADS-2: Benign. The [employer] recommends annual screening mammography beginning at age 40 for women with average risk of breast cancer. ELECTRONICALLY SIGNED: Ana Lilia Maria M.D. on 10/28/2024 at 10:51:08 AM PT Interpreting Station ID: [id number]
== END ==
PROVIDERS: PCP Family Medicine; Referring Provider Family Medicine; Visit Provider Family Medicine
DX: R92.333 Mammographic heterogeneous density, bilateral breasts (principal); R92.1 Mammographic calcification found on diagnostic imaging of breast; N64.4 Mastodynia; Z80.3 Family history of malignant neoplasm of breast
CPT/HCPCS: 76642; 77066; G0279